=== PATIENT | female | born 1970 | race Caucasian/White ===

== ENCOUNTER 2021-05-17 22:43 | Emergency (ER) | payer OTHER ==
[~2021-05-17 22:43] MED LIST: ASPIRIN325 MG PO; NEXIUM20 MG PO; PERCOCET 5-3251 EACH PO; ZPAK PO
[2021-05-18] MEDS ORDERED: VENTOLIN HFA IN18 GM INH (02:04)
[2021-05-18] MEDS ORDERED: HYDROCODONE-CH473 ML PO (02:04)
[2021-05-18] MEDS ORDERED: PULMICORT FLE180 MCG INH (02:04)
[2021-05-18] MEDS ORDERED: TESSALON PERLE100 MG PO (02:04)
[2021-05-18] MEDS ORDERED: PROTONIX 40MG T40 MG PO (02:06)
== END 2021-05-18 02:30 | disposition home or self-care (01) ==
LOC: FER 22:43
DX: U07.1 COVID-19 (principal); K21.9 Gastro-esophageal reflux disease without esophagitis; F17.200 Nicotine dependence, unspecified, uncomplicated; Z79.899 Other long term (current) drug therapy
CPT/HCPCS: 71046; 94640; 94664; 96372; J1100; J1885